=== PATIENT | female | born 1985 | race Caucasian/White ===

== ENCOUNTER 2016-11-20 00:17 | Inpatient (IN) | payer OTHER ==
[2016-11-20] MEDS ORDERED: SODIUM CHLORIDE 500 ML IV SCH ×2 (01:15→02:15)
[2016-11-20 01:33] LABS: BASOPHIL 0.5 % (0-2.0); EOSINOPHIL 2.2 % (0-4.5); MCH 31.4 pg (25.7-33.7); MCHC 34.3 g/dl (32.0-36.0); MEAN CELL VOLUME 91.5 fl (80-96); MEAN PLT VOLUME 7.8 fl (7.5-11.1); NEUTROPHILS 76.6 % (42.8-82.8); PLATELET COUNT 284 K/MM3 (134-434)
[2016-11-20 01:35] LABS: URINE APPEARANCE CLEAR; URINE BILIRUBIN NEGATIVE (NEGATIVE); URINE COLOR YELLOW; URINE GLUCOSE (UA) NEGATIVE (NEGATIVE); URINE KETONE NEGATIVE (NEGATIVE); URINE LEUK ESTERASE NEGATIVE (NEGATIVE); URINE NITRITE NEGATIVE (NEGATIVE); URINE PROTEIN NEGATIVE (NEGATIVE); URINE UROBILINOGEN NEGATIVE E.U./dl (0.2-1.0)
[2016-11-20 01:38] LABS: URINE BLOOD 1+ (NEGATIVE)
[2016-11-20 01:50] LABS: URINE MUCUS MANY; URINE RBC 19 /hpf (0-3); URINE WBC 1 /hpf (3-5)
[2016-11-20] MEDS ORDERED: CEFTRIAXONE 50 ML IVPB ONE (02:10)
--- NOTE | 2016-11-20 04:06 | HP ---
Past Medical History - Primary Care Physician PCP:: Alison Villanueva - Admission Chief Complaint: 31 yo P1 @ 21.4wks c/o Right flank pain, dysuria, pelvic pain, no fever History Source: Patient Limitations to Obtaining History: No Limitations - Past Medical History Renal/: Yes: Renal Calculi (2015 kidney stone during last ) ...: 2 ...Para: 1 ...Term: 1 ...: 0 ...Spon : 0 ...Induced : 0 ... Weeks Gestation by Dates: 21.4 ...EDC by Sono: 03/29/17 Additional Medical History: LGSIL on PAP - Past Surgical History Past Surgical History: Yes: None Hx Myomectomy: No Hx Transabdominal Cerclage: No - Smoking History Smoking history: Never smoked Have you smoked in the past 12 months: No - Alcohol/Substance Use Hx Alcohol Use: No History of Substance Use: reports: None - Social History Usual Living Arrangement: Yes: With Spouse History of Recent Travel: No Home Medications - Allergies Allergies/Adverse Reactions: Allergies Allergy/AdvReac Type Severity Reaction Status Date / Time No Known Allergies Allergy Verified 08/06/16 10:14 - Home Medications Home Medications: Ambulatory Orders Vit/Iron Fumarate/FA [ Tablet] 1 each PO DAILY 11/20/16 Review of Systems - Review of Systems Genitourinary: reports: Burning, Dysuria, Flank Pain (Right sided) Physical Exam - Maternity Vital Signs: Vital Signs Temperature 98.0 F 11/20/16 01:20 Pulse Rate 87 11/20/16 01:20 Respiratory Rate 19 11/20/16 01:20 Blood Pressure 111/65 11/20/16 01:20 O2 Sat by Pulse Oximetry (%) Constitutional: Yes: Well Nourished Neck: Yes: WNL Cardiovascular: Yes: WNL Lungs: Clear to auscultation - Abdominal Exam/OB Fundal Height: 21 Number of Fetuses: Single Contractions: No Monitor Mode: Doppler Heart Rate (range): 140 Heart Rate Location: Midline - Vaginal Exam/OB Vaginal Bleediing: No Speculum Exam: No - Physical Exam Musculoskeletal: Yes: WNL Extremities: Yes: WNL Edema: No Integumentary: Yes: WNL ...Motor Strength: WNL Psychiatric: Yes: WNL - Labs Lab Results: CBC, BMP 11/20/16 01:20 Problem List - Problems (1) Abdominal pain Assessment/Plan: 31 yo P1 @ 21 wks with R flank pain, h/o kidney stone, mild leukocytosis pain not relieved with 1L IVF Will treat for presumed kidney stone, possible concomitant Pyelonephritis Continue IVF Ceftiaxone started Follow UA culture Kidney US in am Code(s): R10.9 - UNSPECIFIED ABDOMINAL PAIN
[2016-11-20 04:11] VITALS: BMI 28.3
[2016-11-20] MEDS ORDERED: ACETAMINOPHEN 325 MG TABLET (FP) PO PRN ×2 (04:22→05:44)
[2016-11-20] MEDS: DEXTROSE 5%-LACTATED RINGERS 1,000 ML IV SCH (05:09)
[2016-11-20] MEDS ORDERED: OXYCODONE/APAP 5/325MG COMBO TABLET PO PRN (05:29)
[2016-11-20] MEDS ORDERED: oxyCODONE HCL 5 MG TABLET PO PRN (05:44)
[2016-11-20] MEDS: PRENATAL VITAMINS W/ FOLIC ACID TABLET (FP) PO SCH (09:39)
[2016-11-20] MEDS: cefTRIAXone 1 GM/50 ML BAG (PRE-DOCKED) IVPB SCH (09:40)
[2016-11-21] MEDS: DEXTROSE 5%-LACTATED RINGERS 1,000 ML IV SCH (05:43)
[2016-11-21 07:01] LABS: BASOPHIL 0.6 % (0-2.0); EOSINOPHIL 3.5 % (0-4.5); MCH 31.9 pg (25.7-33.7); MEAN CELL VOLUME 90.9 fl (80-96); MEAN PLT VOLUME 7.2 fl (7.5-11.1); NEUTROPHILS 66.7 % (42.8-82.8); PLATELET COUNT 216 K/MM3 (134-434); RDW 12.7 % (11.6-15.6); WHITE BLOOD COUNT 9.3 K/mm3 (4.0-10.0)
[2016-11-21] MEDS: PRENATAL VITAMINS W/ FOLIC ACID TABLET (FP) PO SCH (09:02)
[2016-11-21] MEDS: cefTRIAXone 1 GM/50 ML BAG (PRE-DOCKED) IVPB SCH (09:03)
[2016-11-21 10:21] VITALS: BP 118/56; PULSE 88; TEMP 98
--- NOTE | 2016-11-21 10:43 | PN ---
Progress Note, Physician Chief Complaint: 31 yo P1 @ 21.5wks admitted with Right sided Pyelonephritis, possible kidney stone feels improved, tolerating regular diet Kidney US: no hydronephrosis, no stone - Current Medication List Current Medications: Active Medications Acetaminophen (Tylenol -) 650 mg PO Q3H PRN PRN Reason: PAIN Acetaminophen (Tylenol -) 650 mg PO Q4H PRN PRN Reason: PAIN Stop: 11/23/16 05:43 Ceftriaxone Sodium (Rocephin 1gm Ivpb (Pre-Docked)) 1 gm IVPB DAILY [facility] PRN Reason: Protocol Last Admin: 11/21/16 09:03 Dose: 1 gm Dextrose/Lactated Ringer's (D5-Lr -) 1,000 mls @ 125 mls/hr IV ASDIR [facility] Last Admin: 11/21/16 05:43 Dose: 125 mls/hr Oxycodone HCl (Roxicodone -) 10 mg PO Q4H PRN PRN Reason: PAIN Multivit/Folic Acid/Iron ( Vitamins (Sjr) -) 1 tab PO DAILY [facility] Last Admin: 11/21/16 09:02 Dose: 1 tab - Objective Vital Signs: Vital Signs Temperature 98 F 11/21/16 10:20 Pulse Rate 88 11/21/16 10:20 Respiratory Rate 20 11/21/16 10:20 Blood Pressure 118/56 11/21/16 10:20 O2 Sat by Pulse Oximetry (%) Constitutional: Yes: Well Nourished Neck: Yes: WNL, Rigid Cardiovascular: Yes: WNL Respiratory: Yes: WNL Gastrointestinal: Yes: WNL, Soft Genitourinary: Yes: WNL Musculoskeletal: Yes: WNL Extremities: Yes: WNL Neurological: Yes: WNL ...Motor Strength: WNL Psychiatric: Yes: WNL Labs: CBC, BMP 11/21/16 06:40 Problem List - Problems (1) Abdominal pain Code(s): R10.9 - UNSPECIFIED ABDOMINAL PAIN Assessment/Plan 31 yo P1 @ 21.5 wks with resolved symptoms of CVA tenderness improved WBC UA culture 10 to 4power colony count D/C home on PO Keflex F/up with in 1 week
== END 2016-11-21 12:00 | disposition home or self-care (01) | DRG 566 ==
LOC: JDEL 00:17 → JLDR 03:35 → J3W 05:19
PROVIDERS: ADMIT Obstetrics & Gynecology; ATTEND Obstetrics & Gynecology
DX: O23.02 Infections of kidney in pregnancy, second trimester (principal); Z3A.21 21 weeks gestation of pregnancy; Z87.442 Personal history of urinary calculi
CPT/HCPCS: 36415; 59025; 76775-TC; 81003; 81015; 85025; 87086

== ENCOUNTER 2017-01-11 16:51 | Emergency (ER) | payer OTHER ==
[2017-01-11 17:03] VITALS: BMI 29.4
[2017-01-11 18:11] VITALS: BP 113/66; PULSE 90; TEMP 98.5
--- NOTE | 2017-01-11 18:46 | PDOC ---
History of Present Illness - General History Source: Patient, Old Records Exam Limitations: No Limitations - History of Present Illness Initial Comments: 01/11/17 19:02 The patient is a 31 year old female (; currently approximately 28 weeks ), with no significant past medical history, who presents to the emergency department sent in by her PCP for evaluation with right calf pain and swelling for the past couple of days. The patient reports that she has never experienced these symptoms before. The patient denies trauma to the right leg. The patient was cleared by the OB floor prior to presenting to the ED. The patient denies a prior history of PE or DVT. LMP: June 2016. Allergies: None reported. Past Surgical History: None reported. Social History: Non smoker. Denies alcohol or drug use. PCP: Dr. Sebastian Hensley COIN MACHINE COLLECTOR: Dr. Saunders <Regina Chino - Last Filed: 01/11/17 20:44> <Magen Campbell - Last Filed: 01/11/17 20:50> - General Chief Complaint: Pain, Acute Stated Complaint: PCP SENT/LEG PAIN/28 WKS Time Seen by Provider: 01/11/17 18:45 Past History <Regina Chino - Last Filed: 01/11/17 20:44> - Past Medical History Asthma: No Cancer: No Cardiac Disorders: No Diabetes: No HTN: No Seizures: No Thyroid Disease: No Other medical history: PATIENT DENIES MEDICAL HISTORY - Reproductive History (#): 2 Para: 1 - Immunization History Immunization Up to Date: Yes - Psycho/Social/Smoking Cessation Hx Anxiety: No Suicidal Ideation: No Smoking History: Never smoked Have you smoked in the past 12 months: No Hx Alcohol Use: No Drug/Substance Use Hx: No Substance Use Type: None Hx Substance Use Treatment: No <Magen Campbell - Last Filed: 01/11/17 20:50> - Past Medical History Allergies/Adverse Reactions: Allergies Allergy/AdvReac Type Severity Reaction Status Date / Time No Known Allergies Allergy Verified 01/11/17 17:05 Home Medications: Ambulatory Orders Vit/Iron Fumarate/FA [ Tablet] 1 each PO DAILY 11/20/16 Bisacodyl Suppository [Dulcolax Suppository -] 10 mg RC DAILY #7 supp.rect 11/21 Cephalexin [Keflex] 500 mg PO BID #10 capsule 11/21/16 Cephalexin [Keflex] 500 mg PO BID 5 Days 11/21/16 Review of Systems - Review of Systems Able to Perform ROS?: Yes Comments:: 01/11/17 18:54 CONSTITUTIONAL: No fever, no chills, no fatigue EYES: No visual changes ENT: No ear pain, no sore throat CARDIOVASCULAR: No chest pain, no palpitations RESPIRATORY: No cough, no SOB GI: No abdominal pain, no nausea, no vomiting, no constipation, no diarrhea GENITOURINARY: No dysuria, no frequency, no hematuria MUSCULOSKELETAL: +Right calf pain, right calf swelling. No back pain, no joint pain SKIN: No rash NEURO: No headache <Regina Chino - Last Filed: 01/11/17 20:44> *Physical Exam - Vital Signs Last Vital Signs Temp Pulse Resp BP Pulse Ox 98.5 F 90 18 113/66 99 01/11/17 18:00 01/11/17 18:00 01/11/17 18:00 01/11/17 18:00 01/11/17 16:55 - Physical Exam Comments: 01/11/17 18:58 CONSTITUTIONAL: Well-appearing; well-nourished; in no apparent distress. HEAD: Normocephalic; atraumatic. EYES: PERRL; EOM intact. ENMT: External appears normal; normal oropharynx. NECK: Supple; non-tender; no cervical lymphadenopathy. CARD: Normal S1, S2; no murmurs, rubs, or gallops. RESP: Normal chest excursion with respiration; breath sounds clear and equal bilaterally; no wheezes, rhonchi, or rales. ABD: Gravid abdomen with a fundus 5-8 cm above the umbilicus. Soft, non- distended; non-tender; no palpable organomegaly, no palpable hernias. EXT: +1 pitting edema of the right lower extremity with extensive varicosities. Palpable thrombophlebitis of the right calf. Normal ROM in all four extremities ; distal pulses intact. SKIN: Warm, dry, no rash. NEURO: No focal neurological deficiencies. Normal speech, normal gait. <Regina Chino - Last Filed: 01/11/17 20:44> - Vital Signs Last Vital Signs Temp Pulse Resp BP Pulse Ox 98.5 F 90 18 113/66 99 01/11/17 18:00 01/11/17 18:00 01/11/17 18:00 01/11/17 18:00 01/11/17 16:55 <Magen Campbell - Last Filed: 01/11/17 20:50> Medical Decision Making - Medical Decision Making 01/11/17 20:44 EXAM: US/DUPLEX VASCUL US-1 LEG Reviewed By: Dr. David Lees IMPRESSION: No DVT is identified involving the right leg. Call placed to Dr. Saunders at 20:38. Referred to answering service, awaiting callback. Dr. Saunders returned call at 20:43, case discussed. <Regina Chino - Last Filed: 01/11/17 20:44> - Medical Decision Making 01/11/17 20:48 Patient is a well-appearing 31-year-old female, 2 para 1, at 28 weeks gestation who presents with signs and symptoms of acute right lower extremity thrombophlebitis. Right lower externally Doppler ultrasound reveals no evidence of DVT. I discussed the case with Dr. Saunders. Patient is safe to take aspirin- 81 mg in the third trimester and will follow-up as an outpatient. Patient instructed to return in 7 days for repeat study. 01/11/17 20:50 Patient had previously been evaluated in labor and delivery for abdominal pain and cleared prior to evaluation in the ER. <Magen Campbell - Last Filed: 01/11/17 20:50> *DC/Admit/Observation/Transfer - Attestations Scribe Attestion: 01/11/17 18:46 Documentation prepared by Regina Chino, acting as director of medical staff services for Magen Campbell MD. <Regina Chino - Last Filed: 01/11/17 20:44> - Attestations Physician Attestion: 01/11/17 20:48 The documentation was prepared by the scribe under my direct supervision. I have reviewed the documentation which correctly represents the findings, medical decision-making and critical action taken by me. <Magen Campbell - Last Filed: 01/11/17 20:50> Diagnosis at time of Disposition: Superficial thrombophlebitis Qualifiers: Superficial thrombophlebitis-Involved body area: lower extremity Laterality: right Qualified Code(s): I80.01 - Phlebitis and thrombophlebitis of superficial vessels of right lower extremity - Discharge Dispostion Disposition: HOME - Referrals Referrals: Sebastian Hensley MD [Primary Care Provider] - Danie Saunders MD [Staff Physician] - - Patient Instructions Printed Discharge Instructions: DI for Superficial Thrombophlebitis Additional Instructions: Please follow-up for a repeat ultrasound in 7 days. Return immediately for difficulty breathing or shortness of breath or chest pain. You can take 81 mg of aspirin daily and apply warm compresses as often as possible.
[2017-01-11 19:27] LABS: URINE APPEARANCE SLCLOUDY; URINE BILIRUBIN NEGATIVE (NEGATIVE); URINE BLOOD NEGATIVE (NEGATIVE); URINE COLOR LTYELLOW; URINE GLUCOSE (UA) NEGATIVE (NEGATIVE); URINE KETONE NEGATIVE (NEGATIVE); URINE LEUK ESTERASE NEGATIVE (NEGATIVE); URINE NITRITE NEGATIVE (NEGATIVE); URINE PROTEIN NEGATIVE (NEGATIVE); URINE UROBILINOGEN NEGATIVE E.U./dl (0.2-1.0)
== END 2017-01-11 21:06 | disposition home or self-care (01) ==
LOC: JER 16:51
DX: O22.23 Superficial thrombophlebitis in pregnancy, third trimester (principal); I80.01 Phlebitis and thrombophlebitis of superficial vessels of right lower extremity; Z3A.28 28 weeks gestation of pregnancy
CPT/HCPCS: 81003; 87086; 93971-TC; 99281-25; 99282-25

== ENCOUNTER 2017-03-30 16:10 | Inpatient (IN) | payer OTHER ==
[2017-03-30] MEDS ORDERED: PROMETHAZINE HCL 25 MG/1 ML VIAL IVPB ONE (17:00)
[2017-03-30] MEDS ORDERED: BUTORPHANOL TARTRATE 1 MG/ML VIAL IVPB ONE (17:00)
[2017-03-30] MEDS: ELECTROLYTE-148 SOLN 1,000 ML IV SCH ×2 (17:15→19:55)
[2017-03-30] MEDS ORDERED: AMPICILLIN - 100 ML IVPB ONE (17:30)
[2017-03-30 17:46] VITALS: BMI 29.4
[2017-03-30 17:59] LABS: BASOPHIL 0.4 % (0-2.0); EOSINOPHIL 0.8 % (0-4.5); MCH 30.5 pg (25.7-33.7); MCHC 33.5 g/dl (32.0-36.0); MEAN CELL VOLUME 91.2 fl (80-96); MEAN PLT VOLUME 8.3 fl (7.5-11.1); NEUTROPHILS 75.5 % (42.8-82.8); PLATELET COUNT 248 K/MM3 (134-434); WHITE BLOOD COUNT 11.6 K/mm3 (4.0-10.0)
--- NOTE | 2017-03-30 18:18 | HP ---
Past Medical History - Primary Care Physician PCP:: Juarez Carter - Admission Chief Complaint: 31yo P1 with at EGA 40 1/7wks with spontaneous labor admitted with 5cm cervical dilation. 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: Alzheimer's, CVA, Dementia, Migraine, Multiple Sclerosis, Peripheral Neuropathy, Parkinson's, Seizure, Syncope, TIA, Vertigo, Other Cardiovascular: No: AFIB, Aneurysm, Aortic Insufficiency, Aortic Stenosis, CAD, CHF, Deep Vein Thrombosis, HTN, Hyperlipdemia, UT, Mitral Insufficiency, Mitral Stenosis, Murmur, Pulmonary Hypertension, Other Pulmonary: No: Asthma, Bronchitis, Cancer, COPD, O2 Dependent, Pneumonia, Previously Intubated, Pulmonary Embolus, Pulmonary Fibrosis, Sleep Apnea, Other Gastrointestinal: No: Ascites, Cancer, Constipation, Crohn's Disease, Diverticulitis, Diverticulosis, Esophageal Varices, Gastritis, GERD, GI Bleed, Hemorrhoids, Hiatal Hernia, Inflamatory Bowel Disease, Irritable Bowel Disease, Pancreatitis, Peptic Ulcer Disease, Ulcerative Colitis, Other Hepatobiliary: No: Cirrhosis, Cholelithiasis, Cholecystitis, Choledocholithiasis , Hepatitis A, Hepatitis B, Hepatitis C, Other Renal/: Yes: Renal Calculi (2015 kidney stone during last ). No: Renal Failure, Renal Inusuff, BPH, Cancer, Hematuria, Hemodialysis, Neurogenic Bladder, UTI, Other Reproductive: No: Ectopic , Endometriosis, Fibroids, PID, Polycystic Ovary Syndrome, Postmenopausal, Other ...: 2 ...Para: 1 ...Term: 1 ( x 1) ...: 0 ...Spon : 0 ...Induced : 0 ...Multiple Gestation: 0 ...EDC by Sono: 03/29/17 Heme/Onc: No: Anemia, B12 Deficiency, Bleeding Disorder, Cancer, Current Chemotherapy, Current Radiation Therapy, Hemochromatosis, Hypercoaguable State, Myeloproliferative Synd, Sickle Cell Disease, Sickle Cell Trait, Thrombocytopenia, Other Infectious Disease: Yes: Other (HPV) Psych: No: Addictions, Anxiety, Bipolar, Depression, Panic, Psychosis, Schizophrenia, Other Musculoskeletal: No: Bursitis, Chronic low back pain, Hemiparesis, Hemiplegia, Osteoarthritis, Paraplegia, Other Rheumatology: No: Fibromyalgia, Gout, Lupus, Rheumatoid Arthritis, Sarcoidosis, Vasculitis, Other ENT: No: Allergic Rhinitis, Sinusitis, Other Endocrine: No: Broward's Disease, Malik's Disease, Diabetes Insipidus, Diabetes Mellitus, Hyperparathyroidism, Hyperthyroidism, Hypothyroidism, Osteopenia, SIADH, Other Dermatology: No: Basal Cell, Cellulitis, Eczema, Melanoma, Psoriasis, Squamous Cell, Other Additional Medical History: LGSIL on PAP - Past Surgical History Past Surgical History: Yes: None Hx Myomectomy: No Hx Transabdominal Cerclage: No - Smoking History Smoking history: Never smoked Have you smoked in the past 12 months: No - Alcohol/Substance Use Hx Alcohol Use: No History of Substance Use: reports: None - Social History Usual Living Arrangement: Yes: With Spouse, With Child ADL: Independent History of Recent Travel: No Home Medications - Allergies Allergies/Adverse Reactions: Allergies Allergy/AdvReac Type Severity Reaction Status Date / Time No Known Allergies Allergy Verified 01/11/17 17:05 - Home Medications Home Medications: Ambulatory Orders Vit/Iron Fumarate/FA [ Tablet] 1 each PO DAILY 11/20/16 Ferrous Gluconate [Iron] 256 mg PO BID 01/15/17 Aspirin [ASA -] 1 tab PO DAILY 02/12/17 Family Disease History - Family Disease History Other Family History: Aunt: breast cancer Review of Systems - Review of Systems Constitutional: reports: Other (LABOR) Eyes: reports: No Symptoms HENT: reports: No Symptoms Neck: reports: No Symptoms Cardiovascular: reports: No Symptoms Respiratory: reports: No Symptoms Gastrointestinal: reports: No Symptoms Genitourinary: reports: No Symptoms Breasts: reports: No Symptoms Reported Musculoskeletal: reports: No Symptoms Integumentary: reports: No Symptoms Neurological: reports: No Symptoms Endocrine: reports: No Symptoms Hematology/Lymphatic: reports: No Symptoms Psychiatric: reports: No Symptoms Pain Intensity: 9 Physical Exam - Maternity Vital Signs: Vital Signs Temperature 97.4 F L 03/30/17 17:00 Pulse Rate 78 03/30/17 17:00 Respiratory Rate 20 03/30/17 17:00 Blood Pressure 121/78 03/30/17 17:00 O2 Sat by Pulse Oximetry (%) Constitutional: Yes: Well Nourished, No Distress, Calm Eyes: Yes: WNL, Conjunctiva Clear HENT: Yes: WNL, Atraumatic, Normocephalic Neck: Yes: WNL, Supple, Trachea Midline Cardiovascular: Yes: WNL, Regular Rate and Rhythm Lungs: Clear to auscultation, Normal air movement Breast(s): Yes: WNL - Abdominal Exam/OB Fundal Height: 40 Number of Fetuses: Single Presentation: Vertex Contractions: Yes Regularity: Regular Intensity: Mod/Strong Monitor Mode: External Heart Rate (range): 140 Heart Rate Location: Midline Category: I Accelerations: Non-Uniform (s/p IV Stadol) Decelerations: None - Vaginal Exam/OB Vaginal Bleediing: No Speculum Exam: No Dilatation (cm): 5 Effacement (%): 90 Amniotic Membrane Status: Bulging Presentation: Vertex/Position Station: -1 - Physical Exam Musculoskeletal: Yes: WNL Extremities: Yes: Other (varicose veins at LE's) Edema: Yes Edema: LLE: 1+, RLE: 1+ Integumentary: Yes: WNL Deep Tendon Reflex Grade: Normal +2 ...Motor Strength: WNL Psychiatric: Yes: WNL, Alert, Oriented Hemorrhage Risk Assessment - Risk Factors Medium Risk Factors: Yes: None High Risk Factors: Yes: None Risk Score: 1 Risk Level: Medium Risk Imaging - Results Ultrasound: Report Reviewed Assessment/Plan 31yo P1 with at EGA 40 1/7wks with spontaneous labor admitted with 5cm cervical dilation. The fetus with Category I tracing and does ot require intervention. Labor in early active phase. Plan to AROM with head descent and monitor progress.
[2017-03-30 18:27] LABS: ANION GAP 11 (8-16); CALCIUM 8.6 mg/dL (8.5-10.1); CO2 23 mmol/L (21-32); CREATININE 0.5 mg/dL (0.55-1.02); GLUCOSE,RANDOM 63 mg/dL (74-106)
[2017-03-30] MEDS ORDERED: DEXTROSE 5%-LACTATED RINGERS 1,000 ML IV SCH (18:45)
--- NOTE | 2017-03-30 20:16 | PN ---
Ante-Partal Exam - Subjective Subjective: No complaints, s/p epidural Vital Signs: Vital Signs Temperature 98.0 F 03/30/17 18:00 Pulse Rate 75 03/30/17 18:00 Respiratory Rate 20 03/30/17 18:00 Blood Pressure 114/65 03/30/17 18:00 O2 Sat by Pulse Oximetry (%) Bleeding: No Headache: No Visual changes: No Right upper quadrant pain: No Pain (scale 1-10): 0 - Contractions Contractions: Yes Regularity: Regular Intensity: Unaware Monitor Mode: External - Exam during Labor Heart Rate: 130 Variability: Moderate Heart Rate Location: Midline Category: I Monitor Accelerations: Absent Monitor Decelerations: None Exam: Vaginal Dilatation (cm): 7 Effacement (%): 90 Amniotic Membrane Status: Ruptured (AROM) Amniotic Fluid: Meconium Stained Meconium Staining: Light Presentation: Vertex Station: -2 Remarks: Adequate Gynecoid pelvimetry - Intrapartum Hemorrhage Risk Medium Risk Factors: None High Risk Factors: None Risk Score: 0 Risk Level: Low Risk - Assessment/Plan Assessment/Plan: 31yo P1 with at EGA 40.1wks in active labor. Pt w/o cervical change and AROM was done. Plan to monitor labor and status.
[2017-03-30] MEDS ORDERED: FENTANYL/BUPIVACAINE/NS/PF - PCEA - 50 ML DISP.SYRIN EP SCH (20:30)
[2017-03-30] MEDS ORDERED: AMPICILLIN - 100 ML IVPB SCH (21:30)
[2017-03-30] MEDS: D5W-LR W/ 20 UNITS OXYTOCIN 1,000 ML IV SCH (22:20)
[2017-03-30] MEDS ORDERED: BENZOCAINE 20% 57 GM BOTTLE TP PRN (22:29)
[2017-03-30] MEDS ORDERED: METHYLERGONOVINE MALEATE 0.2 MG/1 ML AMP IM PRN (22:29)
[2017-03-30] MEDS ORDERED: WITCH HAZEL 50% (TUCKS) 40 PAD/JAR PAD TP PRN (22:29)
[2017-03-30] MEDS ORDERED: BISACODYL 10 MG SUPP.RECT RC PRN (22:29)
[2017-03-30] MEDS ORDERED: BENZOCAINE 28 GM HEMORRHOIDAL OINTMENT TP PRN (22:29)
[2017-03-30 23:06] LABS: ARTERIAL BLD GAS O2 SATURATION 73.1 % (90-98.9); ARTERIAL BLOOD GAS BASE EXCESS -5.5 meq/l (-2-2); ARTERIAL BLOOD GAS HCO3 18.2 meq/L (22-26); ARTERIAL BLOOD GAS pH 7.37 (7.35-7.45)
[2017-03-30 23:08] LABS: ARTERIAL BLOOD GAS PO2 34.8 mmHg (80-100)
[2017-03-31] MEDS: D5W-LR W/ 20 UNITS OXYTOCIN 1,000 ML IV SCH (00:15)
[2017-03-31] MEDS ORDERED: TUBERCULIN PPD 5 TU/0.1ML SYRINGE (IN PATIENT USE ONLY) ID ONE (00:30)
[2017-03-31] MEDS: IBUPROFEN 600 MG TABLET (FP) PO PRN ×4 (06:04→19:21)
[2017-03-31] MEDS: ACETAMINOPHEN 325 MG TABLET (FP) PO PRN ×4 (06:04→19:21)
[2017-03-31 08:01] LABS: BASOPHIL 0.7 % (0-2.0); EOSINOPHIL 0.4 % (0-4.5); MCH 31.2 pg (25.7-33.7); MCHC 34.3 g/dl (32.0-36.0); MEAN CELL VOLUME 91.1 fl (80-96); MEAN PLT VOLUME 7.9 fl (7.5-11.1); NEUTROPHILS 78.8 % (42.8-82.8); PLATELET COUNT 197 K/MM3 (134-434); RDW 13.6 % (11.6-15.6); WHITE BLOOD COUNT 15.8 K/mm3 (4.0-10.0)
[2017-03-31] MEDS ORDERED: DIPHTH,PERTUSS(ACELL),TET 0.5 ML DISP.SYRIN IM ONE (10:00)
[2017-03-31] MEDS: PRENATAL VITAMINS W/ FOLIC ACID TABLET (FP) PO SCH (10:00)
--- NOTE | 2017-03-31 20:45 | PN ---
Delivery - Delivery Vaginal Delivery: No Problems, Spontaneous Type of Anesthesia: Local, Epidural Episiotomy/Laceration: Vaginal Extension/lac, 2nd degree EBL (cc): 300 Delivery, Single - Stages of Labor Date 1st Stage Initiatied: 03/30/17 Time 1st Stage Initiated: 12:00 Date 2nd Stage Initiated: 03/30/17 Time 2nd Stage Initiated: 21:30 Date of Delivery: 03/30/17 Time of Delivery: 22:08 Time Placenta Delivered: 22:20 Placenta: Yes: Spontaneous, Normal Configuration - Condition of Infant Asset Availability Leader/Division Supervisor Present: No Gender: Female Weight: 3.6 kg Position: Left, OA Total Hours ROM (Hrs/Mins): 2hrs/20mins - 1 Minute Total Score: 9 5 Minutes Total Score: 9 - Feeding Plan Initial Plan: Elected not to breastfeed exclusively throughout hospitalization Benefits of Exclusively reinforced: Yes Remarks - Remarks Remarks: Normal vaginal delivery. Mother and baby are well.
--- NOTE | 2017-03-31 20:48 | PN ---
Post Progress Note - Subjective Subjective: No complaints Post Day: 1 Type of Delivery: Vital Signs: Vital Signs Temperature 98 F 03/31/17 17:25 Pulse Rate 97 H 03/31/17 17:25 Respiratory Rate 20 03/31/17 17:25 Blood Pressure 114/70 03/31/17 17:25 O2 Sat by Pulse Oximetry (%) 100 03/30/17 22:30 Breast Exam: Yes: Soft Uterus: Yes: Fundus Firm, Fundus below umbilicus, Non-tender Abdomen/GI: Yes: Abdomen soft, Passing flatus, Tolerating PO Lochia: Yes: Rubra Lochia, amount: Small Extremities: Yes: Calves non-tender Perineum: Yes: Intact (repair) Activity: Ambulating - Labs Labs: CBC WBC 15.8 K/mm3 (4.0-10.0) H D 03/31/17 07:20 RBC 3.60 M/mm3 (3.60-5.2) 03/31/17 07:20 Hgb 11.2 GM/dL (10.7-15.3) D 03/31/17 07:20 Hct 32.8 % (32.4-45.2) 03/31/17 07:20 MCV 91.1 fl (80-96) 03/31/17 07:20 MCHC 34.3 g/dl (32.0-36.0) 03/31/17 07:20 RDW 13.6 % (11.6-15.6) 03/31/17 07:20 Plt Count 197 K/MM3 (134-434) D 03/31/17 07:20 MPV 7.9 fl (7.5-11.1) 03/31/17 07:20 Neutrophils % 78.8 % (42.8-82.8) 03/31/17 07:20 Lymphocytes % 12.8 % (8-40) 03/31/17 07:20 Monocytes % 7.3 % (3.8-10.2) 03/31/17 07:20 Eosinophils % 0.4 % (0-4.5) 03/31/17 07:20 Basophils % 0.7 % (0-2.0) 03/31/17 07:20 Assessment/Plan 31yo P2 s/p , doing well stable, afebrile. care instructions reviewed. Continue routine care. Ambulation encouraged Discharge instruction reviewed.
--- NOTE | 2017-03-31 20:50 | DS ---
Physical Exam-LEAD CONSULTANT Vital Signs: Vital Signs Temperature 98 F 03/31/17 17:25 Pulse Rate 97 H 03/31/17 17:25 Respiratory Rate 20 03/31/17 17:25 Blood Pressure 114/70 03/31/17 17:25 O2 Sat by Pulse Oximetry (%) 100 03/30/17 22:30 Constitutional: Yes: Well Nourished, No Distress, Calm Eyes: Yes: WNL, Conjunctiva Clear, EOM Intact HENT: Yes: WNL, Atraumatic, Normocephalic Neck: Yes: WNL, Supple, Trachea Midline Cardiovascular: Yes: WNL, Regular Rate and Rhythm Respiratory: Yes: WNL, Regular, CTA Bilaterally Gastrointestinal: Yes: Normal Bowel Sounds, Soft, Abdomen, Obese Renal/: Yes: WNL Pelvis: Yes: WNL External Genitalia: Yes: Normal Internal Exam Deferred: Yes ....Post : Yes: Uterus firm, Uterus non-tender, Slight lochia rubra Breast(s): Yes: WNL Musculoskeletal: Yes: WNL Extremities: Yes: Other (varicose veins at LE) Integumentary: Yes: WNL Neurological: Yes: WNL, Alert, Oriented ...Motor Strength: WNL Psychiatric: Yes: WNL, Alert, Oriented Labs: CBC, BMP 03/31/17 07:20 03/30/17 17:24 Delivery - Delivery Vaginal Delivery: No Problems, Spontaneous Type of Anesthesia: Local, Epidural Episiotomy/Laceration: Vaginal Extension/lac, 2nd degree EBL (cc): 300 Delivery, Single - Stages of Labor Date 1st Stage Initiatied: 03/30/17 Time 1st Stage Initiated: 12:00 Date 2nd Stage Initiated: 03/30/17 Time 2nd Stage Initiated: 21:30 Date of Delivery: 03/30/17 Time of Delivery: 22:08 Date Placenta Delivered: 03/30/17 Time Placenta Delivered: 22:20 Placenta: Yes: Spontaneous, Normal Configuration - Condition of Infant Director Of Regulatory Affairs/Inventory Associate Present: No Gender: Female Weight: 3.6 kg Position: Left, OA Total Hours ROM (Hrs/Mins): 2hrs/20mins - 1 Minute Total Score: 9 5 Minutes Total Score: 9 - Feeding Plan Initial Plan: Elected not to breastfeed exclusively throughout hospitalization Benefits of Exclusively reinforced: Yes Discharge Summary Reason For Visit: LABOR LABOR Procedures: Principal: Hospital Course: Normal recovery Condition: Good - Instructions Diet, Activity, Other Instructions: Physical activity Resume your normal everyday activity as tolerated no heavy lifting or exercise until seen by your surgeon. You may walk unlimited ross of and climb stairs. You may resume driving the car when you feel safe and comfortable behind the wheel. No sexual activity as instructed. Wound care If you have a bandage, leave it on, and keep dry for 48-72 hours. After that time discard the outer bandage. If they are tapes on the skin under the out of bandage leave them in place. They will peel off in the next 7 to 10 days. Do Not Peel them off. You may shower the day after surgery. If there are tapes present on the skin, you may shower over them. Diet There are no dietary restrictions. Eat healthy, high-fiber foods. Drink 6 to 8 glasses of liquid each day. This will assist in keeping your bowels are regular. Pain management You may take Tylenol or acetaminophen or Ibuprofen (for example, Motrin, Advil etc.) from my pain prescription medication is ordered should be taken as prescribed for moderate to severe pain. Call MD for any of the following: Severe pain not relieved by medication Fever of 101 or higher Excessive bleeding or drainage on dressing Inability to urinate Referrals: Juarez Carter MD [Staff Physician] - Disposition: HOME - Home Medications Comprehensive Discharge Medication List: Ambulatory Orders Vit/Iron Fumarate/FA [ Tablet] 1 each PO DAILY 11/20/16 Ferrous Gluconate [Iron] 256 mg PO BID 01/15/17
[2017-03-31] MEDS ORDERED: SENNOSIDES/DOCUSATE COMBO (SENNA PLUS) TABLET (UD) PO PRN (22:00)
[2017-04-01 08:27] VITALS: BP 107/70; PULSE 62; TEMP 97.5
[2017-04-01] MEDS: PRENATAL VITAMINS W/ FOLIC ACID TABLET (FP) PO SCH (09:18)
[2017-04-01] MEDS: ACETAMINOPHEN 325 MG TABLET (FP) PO PRN (09:18)
[2017-04-01] MEDS: IBUPROFEN 600 MG TABLET (FP) PO PRN (09:19)
== END 2017-04-01 13:40 | disposition home or self-care (01) | DRG 560 ==
LOC: JDEL 16:10 → JLDR 17:00 → J3W 03-31 00:15
PROVIDERS: ADMIT Obstetrics & Gynecology; ATTEND Obstetrics & Gynecology
PROC: 10E0XZZ Delivery of Products of Conception, External Approach (ICD-10-PCS; principal; 2017-03-31)
PROC: 0KQM0ZZ Repair Perineum Muscle, Open Approach (ICD-10-PCS; 2017-03-31)
DX: O48.0 Post-term pregnancy (principal); Z3A.40 40 weeks gestation of pregnancy; O70.1 Second degree perineal laceration during delivery; Z37.0 Single live birth
CPT/HCPCS: 36415; 36600; 59409; 80048; 82803; 85025; 85610; 85730; 86593; 86850; 86900; 86901; 90715

== ENCOUNTER 2024-03-10 15:59 | Emergency (ER) | payer OTHER ==
[2024-03-10 16:22] VITALS: BP 140/93; RESP 87; TEMP 98.7; BMI 30.9
[2024-03-10 18:25] LABS: EPI CELLS 6 /uL (0-25.1); HCG,QUALITATIVE URINE Negative; HYALINE CASTS 0 /uL (0-3.1); URINE APPEARANCE CLEAR; URINE BACTERIA 5 /uL (0-1359); URINE BILIRUBIN NEGATIVE (NEGATIVE); URINE COLOR YELLOW; URINE GLUCOSE (UA) NEGATIVE (NEGATIVE); URINE KETONE NEGATIVE (NEGATIVE); URINE LEUK ESTERASE NEGATIVE (NEGATIVE); URINE NITRITE NEGATIVE (NEGATIVE); URINE PROTEIN NEGATIVE (NEGATIVE); URINE RBC 543 /uL (0-23.9); URINE UROBILINOGEN 0.2 mg/dL (0.2-1.0); URINE WBC 8 /uL (0-25.8)
[2024-03-10] MEDS ORDERED: KETOROLAC TROMETHAMINE 30 MG/1 ML VIAL ONE (20:15)
[2024-03-10] MEDS: KETOROLAC TROMETHAMINE 30 MG/1 ML VIAL IM ONE (20:21)
== END 2024-03-10 21:39 | disposition home or self-care (01) ==
LOC: JER 15:59
PROC: 3E0133Z Introduction of Anti-inflammatory into Subcutaneous Tissue, Percutaneous Approach (ICD-10-PCS; principal; 2024-03-10)
DX: R10.31 Right lower quadrant pain (principal); R10.32 Left lower quadrant pain
CPT/HCPCS: 72192-TC; 76830-TC; 81003; 84703; 87086; 99285-25